=== PATIENT | female | born 1995 | race Caucasian/White ===

== ENCOUNTER 2024-08-13 16:42 | Emergency (ER) | payer OTHER, SELFPAY ==
[2024-08-13 16:46] VITALS: BP 124/86; PULSE 88; TEMP 36.4; O2SAT 100; BMI 39.0
--- NOTE | 2024-08-13 17:08 | ED.EAR1 ---
HPI - Ear Problem General Chief complaint: Ear Stated complaint: BUG IN EAR Time Seen by Provider: 08/13/24 17:08 Source: patient Mode of arrival: walk-in Limitations: no limitations History of Present Illness HPI Narrative: Patient is coming to the ER because she thought she had a bug in her ear she did already try to get it by using her finger, she is not feeling that there is any bug in her ear anymore right now Related Data Allergies Allergy/AdvReac Type Severity Reaction Status Date / Time No Known Drug Allergies Allergy Verified 08/13/24 16:49 Review of Systems ROS Status of ROS 10 or more systems reviewed and unremarkable except as noted in history and below Exam Narrative Exam Narrative: Nurses notes and vital signs reviewed and patient is not hypoxic. General: Well-appearing and in no apparent distress. Skin: Warm, dry, no pallor noted. No rash. Head: Normocephalic, atraumatic. Neck: Supple, non-tender. Eye: Pupils are equal, round and EOMI. No scleral icterus. Ears, Nose, Mouth, and Throat: Ear evaluation the left side showed no acute pathology but right earache evaluation showed possibly remaining part of the leg of a insect I did flush the ear and after that and evaluation showed no foreign body Neurological: A&O x4. No cranial nerve dysfunction observed. No truncal ataxia. Moves all extremities. Sensation intact. Psychiatric: Cooperative and interactive. Normal mood and affect. Constitutional Vital Signs, click to edit/add: Last Vital Signs Temp 97.6 F 08/13/24 16:46 Pulse 88 08/13/24 16:46 Resp 18 08/13/24 16:46 BP 124/86 08/13/24 16:46 Pulse Ox 100 08/13/24 16:46 O2 Del Method Room Air 08/13/24 16:46 Course Vital Signs Vital signs: Vital Signs Temperature 97.6 F 08/13/24 16:46 Pulse Rate 88 08/13/24 16:46 Respiratory Rate 18 08/13/24 16:46 Blood Pressure 124/86 08/13/24 16:46 Pulse Oximetry 100 08/13/24 16:46 Oxygen Delivery Method Room Air 08/13/24 16:46 Temperature 97.6 F 08/13/24 16:46 Pulse Rate 88 08/13/24 16:46 Respiratory Rate 18 08/13/24 16:46 Blood Pressure 124/86 08/13/24 16:46 Pulse Oximetry 100 08/13/24 16:46 Oxygen Delivery Method Room Air 08/13/24 16:46 Medical Decision Making MDM Narrative Medical decision making narrative: There was a possibility of a small almost 1 mm piece of insect in the right ear after flushing the ear I could not find that part anymore The patient just to continue monitoring symptoms The patient is to follow up with primary care physician in next 2-3 days or to return to the emergency department should any of the signs or symptoms worsen or new symptoms develop. The patient agrees with the following Diagnosis and Treatment plan and the patient will be discharged home. Discharge Plan Discharge Chief Complaint: Ear Clinical Impression: Foreign body in ear Patient Disposition: Home, Self-Care Time of Disposition Decision: 17:09 Condition: Good Print Language: Persian Instructions: Ear Foreign Body (ED) Referrals: Chiqui Broderick DO [Primary Care Provider] - 1 week
== END 2024-08-13 17:27 | disposition home or self-care (01) ==
PROVIDERS: Emergency Provider Emergency Medicine
DX: T16.1XXA Foreign body in right ear, initial encounter (principal); W44.F4XA Insect entering into or through a natural orifice, initial encounter
CPT/HCPCS: 99281